=== PATIENT | male | born 2000 | race Two or more races ===

== ENCOUNTER 2023-10-23 09:18 | Inpatient (IN) | payer OTHER ==
[~2023-10-23] VITALS: Ht 170.2 cm; Wt 72.6 kg
[2023-10-23 09:57] LABS: BASOPHILS % (AUTO) 0.5 % (0.0-2.0); EOSINOPHILS # (AUTO) 0.1 K/uL (0.0-0.7); EOSINOPHILS % (AUTO) 2.6 % (0.0-6.0); HEMATOCRIT 44 % (39-51); HEMOGLOBIN 14.9 g/dL (13.5-17.5); LYMPHOCYTES # (AUTO) 1.7 K/uL (0.8-4.8); LYMPHOCYTES % (AUTO) 34.7 % (20.0-44.0); MEAN CORPUSCULAR HEMOGLOBIN 28 PG (26.0-33.0); MEAN CORPUSCULAR HGB CONC 34 g/dl (31.0-36.0); MEAN CORPUSCULAR VOLUME 84 fL (80-96); MONOCYTES # (AUTO) 0.4 K/uL (0.1-1.30); NEUTROPHILS # (AUTO) 2.7 K/uL (1.8-8.9); NEUTROPHILS % (AUTO) 53.2 % (43.0-81.0); PLATELET COUNT (AUTO) 196 K/uL (150-450); RED BLOOD CELL COUNT(AUTO) 5.28 MIL/uL (4.5-6.0); RED CELL DISTRIBUTION WIDTH 12.8 % (11.5-15.0)
[2023-10-23 10:11] LABS: CALCIUM, SERUM 8.8 mg/dL (8.5-10.1); CARBON DIOXIDE 29 mmol/L (21-32); CHLORIDE 105 mmol/L (98-107); CREATININE 0.9 mg/dL (0.6-1.3); GLUCOSE 99 mg/dL (74-106); POTASSIUM 3.9 mmol/L (3.5-5.1); SODIUM SERUM 138 mmol/L (136-145); UREA NITROGEN, BLOOD 12 mg/dL (7-18)
[2023-10-23] MEDS ORDERED: ENOXAPARIN SODIUM 80 MG/0.8 ML DISP.SYRIN SQ ONE (10:37)
[2023-10-23] MEDS ORDERED: ASPIRIN 325 MG TABLET ONE (10:37)
[2023-10-23] MEDS ORDERED: ASPIRIN 81 MG TAB.CHEW ONE (10:40)
[2023-10-23] MEDS: ASPIRIN 81 MG TAB.CHEW PO ONE (10:44)
[2023-10-23] MEDS: ENOXAPARIN SODIUM 80 MG/0.8 ML DISP.SYRIN SQ ONE (10:44)
[2023-10-23] MEDS ORDERED: METOPROLOL TARTRATE INJ 5 MG/5 ML AMPUL ONE (11:13)
[2023-10-23] MEDS ORDERED: IOHEXOL-350 100 ML VIAL IV ONE (11:13)
[2023-10-23] MEDS ORDERED: CT SWABBABLE VALVE TRANS SET 1 EA INFUS.SET MC ONE (11:13)
[2023-10-23] MEDS ORDERED: IV NS 0.9% 0 ML IV ONE (11:13)
[2023-10-23] MEDS ORDERED: NITROGLYCERIN 0.4 MG/TAB BOTTLE ONE (11:13)
[2023-10-23] MEDS: NITROGLYCERIN 0.4 MG/TAB BOTTLE SL ONE (11:30)
[2023-10-23] MEDS: METOPROLOL TARTRATE INJ 5 MG/5 ML AMPUL IVP PRN (11:32)
[2023-10-23] MEDS ORDERED: ACETAMINOPHEN 325 MG TABLET PO PRN (13:30)
[2023-10-23] MEDS ORDERED: ZOLPIDEM TARTRATE 5 MG TABLET PO PRN (13:30)
[2023-10-23] MEDS ORDERED: ONDANSETRON HCL/PF 4 MG/2 ML VIAL IVP PRN (13:30)
[2023-10-23] MEDS ORDERED: Z GUARD REMEDY 4 OZ OINT TP PRN (13:30)
[2023-10-23] MEDS ORDERED: MAG HYDROX/AL HYDROX/SIMETH 30 ML UDC PO PRN (13:30)
[2023-10-23] MEDS ORDERED: MAGNESIUM HYDROXIDE 30 ML UDC PO PRN (13:30)
[2023-10-23 13:48] LABS: AMPHETAMINE, URINE NEGATIVE (NEGATIVE); BARBITURATE, URINE NEGATIVE (NEGATIVE); BENZODIAZEPINE, URINE NEGATIVE (NEGATIVE); CANNABINOID, URINE NEGATIVE (NEGATIVE); COCCAINE, URINE NEGATIVE (NEGATIVE); OPIATE, URINE NEGATIVE (NEGATIVE); PHENCYCLIDINE SCREEN,URINE NEGATIVE (NEGATIVE)
[2023-10-23 14:00] VITALS: BP 109/61; TEMP 98.2; O2SAT 97
[2023-10-23 18:00] VITALS: BP 125/73; TEMP 98.8; O2SAT 97
[2023-10-23] MEDS: IV NS 0.9% 1,000 ML IV PRN (18:05)
[2023-10-23] MEDS: NITROGLYCERIN 0.4 MG/TAB BOTTLE SL PRN (18:17)
[2023-10-23 20:00] VITALS: BP 120/72; TEMP 98; O2SAT 100
[2023-10-23 22:00] VITALS: BP 120/72; TEMP 98; O2SAT 100
[2023-10-24 02:00] VITALS: BP 119/63; TEMP 98; O2SAT 100
[2023-10-24 04:00] VITALS: BP 119/73; TEMP 98.9; O2SAT 100
[2023-10-24 06:00] VITALS: BP 119/73; TEMP 98.9; O2SAT 100
[2023-10-24 06:22] LABS: BASOPHILS % (AUTO) 0.3 % (0.0-2.0); EOSINOPHILS # (AUTO) 0.1 K/uL (0.0-0.7); EOSINOPHILS % (AUTO) 2.5 % (0.0-6.0); HEMATOCRIT 43 % (39-51); HEMOGLOBIN 14.7 g/dL (13.5-17.5); LYMPHOCYTES % (AUTO) 36.7 % (20.0-44.0); MEAN CORPUSCULAR HEMOGLOBIN 29 PG (26.0-33.0); MEAN CORPUSCULAR HGB CONC 35 g/dl (31.0-36.0); MEAN CORPUSCULAR VOLUME 85 fL (80-96); MONOCYTES # (AUTO) 0.5 K/uL (0.1-1.30); MONOCYTES % (AUTO) 8.6 % (2.0-12.0); NEUTROPHILS # (AUTO) 2.8 K/uL (1.8-8.9); NEUTROPHILS % (AUTO) 51.9 % (43.0-81.0); PLATELET COUNT (AUTO) 182 K/uL (150-450); RED BLOOD CELL COUNT(AUTO) 5.03 MIL/uL (4.5-6.0); RED CELL DISTRIBUTION WIDTH 12.9 % (11.5-15.0); WHITE BLOOD COUNT (AUTO) 5.4 K/uL (4.3-11.0)
[2023-10-24 06:58] LABS: CALCIUM, SERUM 9.5 mg/dL (8.5-10.1); CREATININE 0.8 mg/dL (0.6-1.3); MAGNESIUM 2.3 mg/dL (1.8-2.4); PHOSPHORUS 3.7 mg/dL (2.5-4.9); POTASSIUM 4.3 mmol/L (3.5-5.1)
[2023-10-24] MEDS: ASPIRIN 81 MG TAB.CHEW PO SCH (08:53)
[2023-10-24 10:00] VITALS: BP 114/64; TEMP 97.3; O2SAT 100
== END 2023-10-24 14:00 | disposition home or self-care (01) | DRG 207 ==
LOC: ER 09:29 → TELE1 12:19
PROVIDERS: ADMIT Nurse Practitioner Acute Care; ATTEND Nurse Practitioner Acute Care
DX: I51.4 Myocarditis, unspecified (principal); I21.A1 Myocardial infarction type 2
CPT/HCPCS: 36415; 71045-TC; 75574; 80048-TC; 80061-TC; 83735-TC; 84100-TC; 84484-TC; 85025-TC; 93307-TC; A4223; G0378; G0480; J1650; J3490; J7030; J7050; Q9967